=== PATIENT | male | born 1985 | race American Indian/Alaskan Native ===

== ENCOUNTER 2017-04-27 07:37 | Emergency (ER) | payer MEDICAID, OTHER ==
[2017-04-27 08:10] LABS: Urine Drugs of Abuse Note Disclamer
[2017-04-27 08:18] LABS: Eosinophils % (Auto) 1.6 % (0.0-4.3); Hematocrit 43.6 % (35.5-45.6); Hemoglobin 14.5 gm/dl (11.8-15.2); Mean Corpuscular HGB Conc 33 % (32-34); Mean Corpuscular Hemoglobin 30 pg (28-32); Mean Corpuscular Volume 90 fl (84-94); Platelet Count 346 K/mm3 (140-440); Red Blood Count 4.85 M/mm3 (3.65-5.03); Red Cell Distribution Width 13.5 % (13.2-15.2)
[2017-04-27 08:30] LABS: Anion Gap 20 mmol/L; BUN/Creatinine Ratio 8.75; Blood Urea Nitrogen 7 mg/dL (9-20); Calcium 8.7 mg/dL (8.4-10.2); Carbon Dioxide 25 mmol/L (22-30); Chloride 100.7 mmol/L (98-107); Glucose 86 mg/dL (75-100); Potassium 3.7 mmol/L (3.6-5.0); Sodium 142 mmol/L (137-145)
[2017-04-27 08:31] LABS: Bacteria,Urine 1+ /HPF (Negative); Bilirubin,Urine NEG (Negative); Blood,Urine LG (Negative); Ketones,Urine 20 mg/dL (Negative); Leukocyte Esterase,Urine NEG (Negative); Nitrite,Urine NEG (Negative); Urobilinogen,Urine < 2.0 mg/dL (<2.0)
[2017-04-27 08:43] LABS: RBC,Urine > 182.0 /HPF (0.0-6.0)
--- NOTE | 2017-04-27 08:53 | Emergency Department Report ---
HPI - General Chief Complaint: Psych Time Seen by Provider: 04/27/17 08:11 - HPI HPI: This is a 31-year-old Afro-Polish male who presents to the emergency department and stated to triage that he is having auditory and visual hallucinations. He mentioned that he was having suicidal ideations but doesn't have any plan. He had said through triage that "I am confused, there are some thoughts in my head." He admits to a history of schizophrenia but has been out of his medication. Patient currently is arousable from sleep but nonverbal and therefore a poor historian to me. ED Past Medical Hx - Past Medical History Additional medical history: schizophrenia - Social History Smoking Status: Never Smoker - Medications Home Medications: Home Medications Medication Instructions Recorded Confirmed Last Taken Type Unobtainable 04/27/17 04/27/17 Unknown History ED Review of Systems ROS: Stated complaint: MH EVAL Other details as noted in HPI Comment: Unobtainable due to pts medical conditions Physical Exam - Physical Exam Vital Signs: Vital Signs 04/27/17 07:40 Temperature 97.7 F Pulse Rate 93 H Respiratory 16 Rate Blood Pressure 123/77 O2 Sat by Pulse 98 Oximetry Physical Exam: GENERAL: The patient is well-developed well-nourished. HEENT: Normocephalic. Atraumatic. Extraocular motions are intact. Patient has moist mucous membranes. Pupils equal reactive to light bilaterally. NECK: Supple. Trachea is midline. CHEST/LUNGS: Clear to auscultation. There is no respiratory distress noted. HEART/CARDIOVASCULAR: Regular. There is no tachycardia. There is no gallop rub or murmur. ABDOMEN: Abdomen is soft, nontender. Patient has normal bowel sounds. There is no abdominal distention. SKIN: Skin is warm and dry. NEURO: Patient is sleeping but is arousable. However the patient is nonverbal and not very cooperative. MUSCULOSKELETAL: There is no tenderness or deformity. There is no limitation range of motion. There is no evidence of acute injury. ED Course Vital Signs 04/27/17 07:40 Temperature 97.7 F Pulse Rate 93 H Respiratory 16 Rate Blood Pressure 123/77 O2 Sat by Pulse 98 Oximetry - Reevaluation(s) Reevaluation #1: Patient is now more verbal. He does not appear to be in any acute distress. He says that he has been having a one-month history of hematuria and some occasional low back pain. A CT scan of the abdomen and pelvis without contrast was ordered to see if there was any signs of nephrolithiasis, however the CT scan resulted as a normal examination. 04/27/17 11:40 ED Medical Decision Making - Lab Data Result diagrams: 04/27/17 07:53 04/27/17 07:53 - Medical Decision Making 31-year-old male presents to the emergency department with auditory and visual hallucinations that are causing some psychosis and suicidal ideations. At first the patient tried locking himself in a room and curled up underneath one of the sinks. He then was placed in room 14 where he laid down and went to sleep directly in front of the door. He was arousable from sleep but chose to be nonverbal and not cooperative. His labs were mostly unremarkable except for hematuria and the urinalysis. Also the urine drug screen was positive for methamphetamines and cocaine. It is unknown whether the symptoms he is in its is due to substance abuse or if the substance abuse exacerbates his underlying psychiatric conditions. A CT of the abdomen and pelvis was done that was a normal examination and did not show any signs of nephrolithiasis or kidney dysfunction. Patient has become more verbal but it is intermittent. He has been made a 1013 secondary to the psychosis and alleged suicidal ideations. He is currently medically cleared for psychiatric placement. - Differential Diagnosis schizophrenia, schizoaffective, bipolar disorder, substance abuse Critical Care Time: No Critical care attestation.: If time is entered above; I have spent that time in minutes in the direct care of this critically ill patient, excluding procedure time. ED Disposition Clinical Impression: Suicidal ideation Psychosis Qualifiers: Psychosis type: unspecified psychosis type Qualified Code(s): F29 - Unspecified psychosis not due to a substance or known physiological condition Disposition: DC/TX PSY HOSP/PSY UNIT Is pt being admited?: No Condition: Stable Referrals: PRIMARY CARE, [Primary Care Provider] - 3-5 Days Time of Disposition: 11:44
--- NOTE | 2017-04-27 10:46 | Cat Scan Report ---
CT OF THE ABDOMEN AND PELVIS WITHOUT CONTRAST HISTORY: Hematuria, back pain. TECHNIQUE: Helical CT without contrast. Sagittal and coronal reformatted images. FINDINGS: Within the limits of a noncontrast exam, the abdominal and pelvic viscera are within normal limits. The liver, biliary system, pancreas, spleen, kidneys, adrenal glands and bladder are unremarkable. The bowel loops are normal caliber and wall thickness. Normal appendix. The aorta is normal caliber. No ascites, bulky adenopathy or inflammatory changes. The lung bases are clear. Normal heart size. No suspicious bony lesion. IMPRESSION: Unremarkable noncontrast CT of the abdomen and pelvis.
--- NOTE | 2017-04-27 15:41 | Consultation ---
History of Present Illness - Reason for Consult Consult date: 04/27/17 Reason for consult: psychiatric evaluation, psychosis - Chief Complaint Chief complaint: "out of meds" This is a 31-year-old Afro-Sammarinese male seen in the ED for psychiatric evaluation. Primary complaints are auditory and visual hallucinations, paranoia , SI, crying spells, and lack of stable living and food. He admits to a history of schizophrenia but has been out of his medication for unknown amount of time. He was not able to provide detailed answers to questions as he would start crying. He states his girlfriend left and that cost him a place to live. He has been using "pills, ecstasy, and cocaine" in the past few days. He states he left rehab 04/21/17. - Past Medical History Additional medical history: schizophrenia Past Psych history: past medication trials of ritalin for adhd, zoloft, depakote prozac, and zyprexa. on Stattera and Seroquel 300mg hs normally but has been out for an unknown amount of time. - Social History homeless lack of resources for food unemployed does not have disability Medications and Allergies Allergies Allergy/AdvReac Type Severity Reaction Status Date / Time No Known Allergies Allergy Unverified 04/27/17 07:48 Home Medications Medication Instructions Recorded Confirmed Last Taken Type Unobtainable 04/27/17 04/27/17 Unknown History Mental Status Exam - Vital signs Last Vital Signs Temp 97.7 F 04/27/17 07:40 Pulse 93 H 04/27/17 07:40 Resp 16 04/27/17 07:40 BP 123/77 04/27/17 07:40 Pulse Ox 98 04/27/17 07:40 - Exam Orientation: time, place, person Affect: depressed Mood: congruent with affect, sad Thought content: paranoia Thought Process: Tangential Perceptions: auditory, hallucinations Speech: normal rate and pattern Concentration: distractible Motor activity: normal Level of consciousness: alert Sleep Symptoms: Difficulty Falling Asleep Appetite: decreased Interaction: cooperative Results Result Diagrams: 04/27/17 07:53 04/27/17 07:53 Abnormal lab results 04/27/17 04/27/17 04/27/17 Range/Units 07:53 07:53 07:53 [place] % (Auto) 10.9 H (0.0-7.3) % BUN 7 L (9-20) mg/dL Urine WBC (Auto) (0.0-6.0) /HPF Plasma/Serum Alcohol 0.10 H (0-0.07) gm% 04/27/ Range/Units 07:55 [place] % (Auto) (0.0-7.3) % BUN (9-20) mg/dL Urine WBC (Auto) 14.0 H (0.0-6.0) /HPF Plasma/Serum Alcohol (0-0.07) gm% All other labs normal. Assessment and Plan Assessment and plan: Impression: Suicidal ideation and psychotic/mood symptoms impairing his daily functioning and presenting a safety risk Schizoaffective disorder likely MDMA use Cocaine use Recommendation: Continue 1013 and transfer to inpatient psychiatric facility Start Seroquel 100mg hs for mood and psychotic symptoms and plan to increase if his stay is extended.
--- NOTE | 2017-04-28 10:15 | Progress Note ---
Subjective - Reason for Consult Consult date: 04/28/17 Reason for consult: Psychiatry Follow-up - Chief Complaint Chief complaint: "I was put out" This is a 31-year-old Afro-Samoan male seen in the ED for psychiatric evaluation. Primary complaints are auditory and visual hallucinations, paranoia , SI, crying spells, and lack of stable living and food. Today patient is calm, cooperative, hyper mormonism with a circumstantial thought process. He stated that he has not taken his psy meds in 3 months. He stated that he moved from [place] and moved in with a woman he met off the internet. He stated that he caught the girlfriend cheating and started drinking again. He stated that he wanted to drink himself to "." He stated that he is suicidal and he would do anything to end his life. He believe "God" control his life and he don't listen. He stated that he hear the voice of God "now." He spoke about the [place]ians in the bible and how important it is for him to follow their "word." He stated that he uses cocaine, but have no idea how amphetamines got into his system. He denies HI's, VH's, poor appetite or sleep disturbance. He stated that he completed a 20 day detox with [facility] on 04/21/2017. He denies any side effects of his psy medications. Mental Status Exam - Vital signs Last Vital Signs Temp 97.9 F 04/27/17 20:05 Pulse 65 04/27/17 20:05 Resp 18 04/27/17 20:05 BP 111/57 04/27/17 20:05 Pulse Ox 99 04/27/17 20:05 - Exam Narrative exam: MSE: Appearance: cooperative, calm, disheveled Behavior: good eye contact Speech: regular rate and tone Mood: "I am down" Affect: congruent to mood Thought Process: circumstantial Thought Content: denies SI/HI's and VH's, hyper mormonism Motor Activity: lying in bed Cognition: a/ox 3 Insight: limited Judgment: limited Assessment and Plan Impression: Suicidal ideation and psychotic/mood symptoms impairing his daily functioning and presenting a safety risk. Schizoaffective disorder likely. MDMA use. Cocaine use. Today patient is calm, cooperative, hyper mormonism with a circumstantial thought process. He stated that he has not taken his psy meds in 3 months. He stated that he moved from [place] and moved in with a woman he met off the internet. He stated that he caught the girlfriend cheating and started drinking again. He stated that he wanted to drink himself to "." He stated that he is suicidal and he would do anything to end his life. He believe "God" control his life and he don't listen. He denies HI's and VH's. Positive for amphetamines and cocaine. Recommendation/Plan: Continue 1013 and transfer to inpatient psychiatric facility. Modified Seroquel to 200 mg hs for mood and psychotic symptoms. Discussed possible metabolic side effects of Seroquel.
--- NOTE | 2017-04-29 09:07 | Progress Note ---
Subjective - Reason for Consult Consult date: 04/29/17 Reason for consult: Psychiatry Follow-up - Chief Complaint Chief complaint: "I was put out" This is a 31-year-old Afro-[place] male seen in the ED for psychiatric evaluation. Primary complaints are auditory and visual hallucinations, paranoia , SI, crying spells, and lack of stable living and food. Today patient is calm and cooperative with a circumstantial thought process. He stated that he just wanted to rest and wasn't in a talking mood. He did state that the voices has decreased when asked about AH's. He would not say if he was still suicidal. He denies depression symptoms. Mental Status Exam - Vital signs Last Vital Signs Temp 97.6 F 04/29/17 08:08 Pulse 88 04/29/17 08:08 Resp 16 04/29/17 08:09 BP 110/65 04/29/17 08:08 Pulse Ox 97 04/29/17 08:08 - Exam Narrative exam: MSE: Appearance: cooperative, calm, disheveled Behavior: good eye contact Speech: regular rate and tone Mood: "I don't know" Affect: congruent to mood Thought Process: circumstantial Thought Content: denies SI/HI's and VH's, Motor Activity: lying in bed Cognition: a/ox 3 Insight: limited Judgment: limited Assessment and Plan Impression: Suicidal ideation and psychotic/mood symptoms impairing his daily functioning and presenting a safety risk. Schizoaffective disorder likely. MDMA use. Cocaine use. This is a 31-year-old Afro-[place] male seen in the ED for psychiatric evaluation. Primary complaints are auditory and visual hallucinations, paranoia, SI, crying spells, and lack of stable living and food. Today patient is calm and cooperative with a circumstantial thought process. He stated that he just wanted to rest and wasn't in a talking mood. He denies HI's and VH's. Positive for amphetamines and cocaine. Recommendation/Plan: Continue 1013 and transfer to inpatient psychiatric facility. Continue Seroquel to 200 mg hs for mood and psychotic symptoms. Discussed possible metabolic side effects of Seroquel.
--- NOTE | 2017-04-30 09:05 | Progress Note ---
Subjective - Reason for Consult Consult date: 04/30/17 Reason for consult: Psychiatry Follow-up - Chief Complaint Chief complaint: "I was put out" This is a 31-year-old Afro-Romanian male seen in the ED for psychiatric evaluation. Primary complaints are auditory and visual hallucinations, paranoia , SI, crying spells, and lack of stable living and food. Today patient is calm and cooperative with a circumstantial thought process. He stated that he feels fine. He stated that his mood is "okay." Patient stated that his walk with God is an ongoing thing. Yesterday patient's hyper mandaen content was absent. Today it's more prominent. He denies SI/HI's, AVH's, and depression symptoms. . Mental Status Exam - Vital signs Last Vital Signs Temp 97.8 F 04/30/17 08:05 Pulse 89 04/30/17 08:05 Resp 18 04/30/17 08:06 BP 100/57 04/30/17 08:05 Pulse Ox 98 04/30/17 08:06 - Exam Narrative exam: MSE: Appearance: cooperative, calm, disheveled Behavior: good eye contact Speech: regular rate and tone Mood: "I am good" Affect: congruent to mood Thought Process: circumstantial Thought Content: denies SI/HI's and AVH's, Motor Activity: lying in bed Cognition: a/ox 3 Insight: limited Judgment: limited Assessment and Plan mpression: Suicidal ideation and psychotic/mood symptoms impairing his daily functioning and presenting a safety risk. Schizoaffective disorder likely. MDMA use. Cocaine use. Today patient is calm and cooperative with a circumstantial thought process. He stated that he feels fine. He stated that his mood is "okay. " Patient stated that his walk with God is an ongoing thing. Yesterday patient' s hyper mandaen content was absent. He denies HI's and VH's. Positive for amphetamines and cocaine. Recommendation/Plan: Continue 1013 and transfer to inpatient psychiatric facility. Continue Seroquel to 200 mg hs for psychotic symptoms. Discussed possible metabolic side effects of Seroquel with patient. Start Depakote 500 mg PO BID for mood.
[2017-04-30 09:59] LABS: Alanine Aminotransferase 16 units/L (7-56); Alkaline Phosphatase 48 units/L (35-129)
--- NOTE | 2017-05-01 17:17 | Progress Note ---
Subjective - Reason for Consult Consult date: 05/01/17 Reason for consult: follow up for psychiatry - Chief Complaint Chief complaint: "I don't need meds" This is a 31-year-old Afro-Malawian male seen in the ED for psychiatric follow up. Initial complaints were auditory and visual hallucinations, paranoia, SI, crying spells, and lack of stable living and food. Today patient is calm and cooperative with a linear thought process. He stated that he feels fine. He stated that his mood is "good." No hyperreligiousity. He denies SI/HI's, AVH's, and depression symptoms. Mental Status Exam - Vital signs Last Vital Signs Temp 98.0 F 05/01/17 07:30 Pulse 75 05/01/17 07:30 Resp 16 05/01/17 09:40 BP 126/79 05/01/17 07:30 Pulse Ox 99 05/01/17 09:40 - Exam Narrative exam: MSE: Appearance: cooperative, calm Behavior: good eye contact Speech: regular rate and tone Mood: "I am good" Affect: congruent to mood Thought Process: linear Thought Content: denies SI/HI's and AVH's, Motor Activity: lying in bed Cognition: a/ox 3 Insight: fair Judgment: limited-fair Assessment and Plan Impression: No acute safety concerns. No further hyperreligiousity No SI, No HI Schizoaffective disorder possible MDMA use. Cocaine use. He denies HI's and VH's. Positive for amphetamines and cocaine.-on arrival Initial presentation influenced by substance use and symptoms have resolved. Recommendation/Plan: Rescind 1013 and have patient follow up with outpatient mental health. Referrals provided.
[2017-05-01 20:30] VITALS: BP 117/79
== END 2017-05-01 20:45 ==
LOC: EEVIPCON 07:37 → ED 07:37
DX: R45.851 Suicidal ideations (principal); F29 Unspecified psychosis not due to a substance or known physiological condition; F20.9 Schizophrenia, unspecified
CPT/HCPCS: 36415; 74176; 80048; 80307; 81001; 82550; 84075; 84450; 84460; 85025; 99285; G0480; 80320